=== PATIENT | male | born 1985 | race Caucasian/White ===

== ENCOUNTER 2022-04-07 19:52 | Observation (INO) | payer MEDICAID, SELFPAY ==
[2022-04-07 19:53] VITALS: BP 117/77; PULSE 67; RESP 16; TEMP 36.3; O2SAT 100; BMI 22.2
[2022-04-07 20:29] LABS: Absolute Lymphocyte Count 3.33 X10^3/uL (0.83-4.51); Absolute Neutrophil Count 2.7 X10^3/uL (2.0-7.7); Basophil# 0.05 X10^3/uL; Basophil% 0.7 % (0-1); Eosinophil# 0.24 X10^3/uL; Eosinophils% 3.5 % (0-5); Hematocrit 38.7 % (40-54); Hemoglobin 12.5 g/dL (13.0-16.5); Lymphocyte # 3.33 X10^3/ul (0.83-4.51); Lymphocyte % 48.4 % (19-41); Mean Corp Hgb Conc 32.3 g/dL (32-36); Mean Corpuscular Hgb 28.2 pg (27.0-32.0); Mean Corpuscular Volume 87.2 fL (80-94); Mean Platelet Vol. 11.4 fl (6.2-12.0); Monocyte# 0.58 X10^3/uL; Monocyte% 8.4 % (0-10); NRBC Flagged by Analyzer 0 % (0-5); Neutrophil # 2.66 X10^3/uL (2.7-7.7); Neutrophil % 38.7 % (47-70); Platelet Count 262 K/mm3 (150-450); RBC Distribution Width CV 13.2 % (11.6-14.6); RBC Distribution Width SD 41.8 fl (35.1-43.9); Red Blood Count 4.44 M/mm3 (4.6-6.2); White Blood Count 6.9 K/mm3 (4.4-11.0)
--- NOTE | 2022-04-07 20:40 | CM.ED ---
Addendum entered by Toya Michael 04/07/22 20:45: LIYAH reviewed chart and noted that patient has no PCP. SW provided patient with list of [facility] and [facility] Physician List for reference. Original Note: LIYAH Note Referral Reason: RAMP Referral Source: Case Find SW met with patient to discuss the RAMP program.Patient gave consent to speak to him in front of his mother, who was also in the room. Patient reports they are detoxing from fentanyl. Last use was 1 hour ago. He last used 2/10th but generally uses 1 gram a day. Patient is not linked with outpatient AOD provider. Patient was advised that the RAMP program includes no outside food or visitors, no phone access and all personal items are secured. Patient reports he is homeless. SW called Treatment Navigator and updated her regarding patient?s admission to RAMP. Plan: RAMP Toya PATEL
[2022-04-07 20:47] LABS: Amphetamine Urine VISTA POSITIVE (<1000 ng/mL); Barbiturate Urine VISTA NEGATIVE (< 200 ng/mL); Benzodiazepine Urine VISTA NEGATIVE (< 200 ng/mL); Cocaine Urine VISTA NEGATIVE (< 300 ng/mL); Ecstacy Urine VISTA POSITIVE (< 500 ng/mL); Methadone Urine VISTA NEGATIVE (< 300 ng/mL); PCP Urine VISTA NEGATIVE (< 25 ng/mL); THC Urine VISTA NEGATIVE (< 50 ng/mL); Vista UDS pH Range 5
[2022-04-07 20:55] LABS: Alcohol, Blood (Medical)-Serum < 3.0 mg/dL
[2022-04-07 21:00] LABS: ALB/GLOB Ratio 0.7 RATIO (0.9-2.4); AST(SGOT) 23 U/L (15-37); Alanine Aminotransfer ALT/SGPT 19 U/L (16-61); Albumin, Serum 3.5 g/dL (3.2-5.0); Alkaline Phosphatase 110 U/L (45-117); Anion Gap 7 (5-15); BUN 16 mg/dL (7-18); BUN/Creat Ratio 15.8 RATIO (10-20); Calcium,Total 9.2 mg/dL (8.5-10.1); Chloride 105 mmol/L (98-107); Creatinine, Serum 1.01 mg/dL (0.70-1.30); EST Glomerular Filtration Rate 89 mL/min (>60); Est Glom Filt Rate - Afr Amer 107 mL/min (>60); Estimated Creatinine Clearance 115.41 ml/min; Globulin 4.7 g/dL (2.2-4.2); Glucose 133 mg/dL (74-106); Potassium 3.6 mmol/L (3.5-5.1); Protein, Total 8.2 g/dL (6.4-8.2); Sodium Level 140 mmol/L (136-145)
--- NOTE | 2022-04-07 21:05 | EX.ED.SAOD ---
HPI History of Present Illness Chief Complaint: Substance Abuse Informant: patient Narrative Narrative: Patient is a 37-year-old male that denies any significant past medical history presenting for fentanyl detox. Patient states he last detoxed about a year ago at another facility. He states he uses IV fentanyl multiple times a day. He uses about a gram a day. He last used at around 730 this evening. He also uses methamphetamines and intermittently uses gabapentin and benzodiazepines. Notes he ran out of benzodiazepines about a week ago. Denies any alcohol use. Does use tobacco. Is unaware of any history of HIV or hepatitis. Has no medical complaints at this time. No other complaints. [facility] Home Medications NK 04/07/22 [History Last Taken Unknown] Allergy/AdvReac Type Severity Reaction Status Date / Time No Known Allergies Allergy Verified 04/07/22 19:56 Family History (Updated 04/07/22 @ 22:[address] Farhad Adams MD) Other Diabetes Social History Smoking Status: Current every day smoker tobacco type: cigarettes ROS ROS ED Constitutional Constitutional ED: Denies chills or fever(s) Eyes Eyes: Denies change in vision Cardiovascular Cardiovascular: Denies chest pain Respiratory/Chest Respiratory/Chest: Denies cough or dyspnea Gastrointestinal Gastrointestinal: Denies nausea or vomiting Musculoskeletal Musculoskeletal: Denies arthralgias or myalgias Neurologic Neurologic: Denies headache(s) Psychiatric Psychiatric: Reports other Details: Polysubstance abuse ; Denies anxiety EXAM Physical Exam Const Vital Signs: 04/07/22 19:53 04/07/22 19:53 Temperature 97.3 F L 97.3 F L Temperature Source Temporal Temporal Pulse Rate 67 67 Respiratory Rate 16 16 Blood Pressure 117/77 117/77 Blood Pressure Mean 90 90 Pulse Ox 100 100 Oxygen Delivery Method Room Air Room Air Positive well developed and cachectic General Appearance ED: well developed, cachectic and NAD Nutritional Appearance: cachectic HEENT Reports moist mucous membranes atraumatic Eyes PERRL and EOMs intact bilaterally Neck supple Chest Wall inspection of chest normal and palpation of chest normal Resp normal respiratory effort and clear to auscultation bilaterally Cardio regular rate, regular rhythm and no murmurs GI soft to palpation, non-tender and non-distended Extremity General Extremety ED: Negative for edema General Extremity: Negative for edema Neuro oriented x3 and no sensory deficits noted Sensorium / Orientation: alert Motor Exam: strength 5/5 throughout; Negative for general weakness Psych mental status grossly normal and thought process normal Skin Skin Narrative: No rash appreciated. Scattered track robert on the upper extremities MDM MDM MDM Narrative Medical decision making narrative: Patient evaluated for detox from fentanyl. Patient appears nontoxic. He clinically does not appear intoxicated. Screening for ramp program performed. Patient will is not actively withdrawing and does not require any symptomatic management at this time. Case will be discussed with the hospitalist, Dr. Aleman for admission. Lab Data Attestation: I reviewed the patient's lab results. Labs: Laboratory Results - last 24 hr 04/07/22 04/07/22 04/07/22 20:22 20:22 20:22 WBC 6.9 RBC 4.44 L Hgb 12.5 L Hct 38.7 L MCV 87.2 MCH 28.2 MCHC 32.3 RDW Std Deviation 41.8 RDW Coeff of Cole 13.2 Plt Count 262 MPV 11.4 Immature Gran % (Auto) 0.300 Neut % (Auto) 38.7 L Lymph % (Auto) 48.4 H [place] % (Auto) 8.4 Eos % (Auto) 3.5 Baso % (Auto) 0.7 Absolute Neuts (auto) 2.7 Absolute Lymphs (auto) 3.33 Nucleated RBC % 0 Sodium 140 Potassium 3.6 Chloride 105 Carbon Dioxide 28.0 Anion Gap 7 BUN 16 Creatinine 1.01 Estim Creat Clear Calc 115.41 Est GFR (MDRD) Af Amer 107 Est GFR (MDRD) Non-Af 89 BUN/Creatinine Ratio 15.8 Glucose 133 H Calcium 9.2 Total Bilirubin 0.20 AST 23 ALT 19 Alkaline Phosphatase 110 Total Protein 8.2 Albumin 3.5 Globulin 4.7 H Albumin/Globulin Ratio 0.7 L Urine Opiates Screen Urine Methadone Screen Ur Barbiturates Screen Ur Phencyclidine Scrn Ur Amphetamines Screen MDMA (Ecstasy) Screen U Benzodiazepines Scrn Urine Cocaine Screen U Cannabinoids Screen Ur Drug Screen Comment Ethyl Alcohol < 3.0 04/07/22 20:22 WBC RBC Hgb Hct MCV MCH MCHC RDW Std Deviation RDW Coeff of Cole Plt Count MPV Immature Gran % (Auto) Neut % (Auto) Lymph % (Auto) [place] % (Auto) Eos % (Auto) Baso % (Auto) Absolute Neuts (auto) Absolute Lymphs (auto) Nucleated RBC % Sodium Potassium Chloride Carbon Dioxide Anion Gap BUN Creatinine Estim Creat Clear Calc Est GFR (MDRD) Af Amer Est GFR (MDRD) Non-Af BUN/Creatinine Ratio Glucose Calcium Total Bilirubin AST ALT Alkaline Phosphatase Total Protein Albumin Globulin Albumin/Globulin Ratio Urine Opiates Screen NEGATIVE Urine Methadone Screen NEGATIVE Ur Barbiturates Screen NEGATIVE Ur Phencyclidine Scrn NEGATIVE Ur Amphetamines Screen POSITIVE H MDMA (Ecstasy) Screen POSITIVE H U Benzodiazepines Scrn NEGATIVE Urine Cocaine Screen NEGATIVE U Cannabinoids Screen NEGATIVE Ur Drug Screen Comment Ethyl Alcohol Discharge Plan Dx/Rx/DC Orders Clinical Impression: Polysubstance abuse, Active intravenous drug use Disposition Disposition: Acute Care Hospital [facility]
--- NOTE | 2022-04-07 22:02 | HP.PCM.HOS_ITS ---
HPI - General General Date of Admission: 04/07/22 Date of Service: 04/07/22 Chief Complaint: Desire for detoxification HPI Narrative JORDAN MORALEZ, is a 37 M with a significant history of polysubstance abuse who presents emergency department with help with detoxification. Patient uses fentanyl, methamphetamine, gabapentin, benzodiazepines and marijuana. Patient's aunt who was with patient at bedside and patient has been noticing some twitching that started on the same day of presentation. Patient admitted that he has cut down the use of his fentanyl. Also last time that he used benzodiazepine (clonidine) is about a week ago. Fentanyl use: Patient has been using IV fentanyl for about 10 years. Typically he uses about 1 g/day. Last time he used was about 2 hours before presentation. He reports going through multiple detoxs in the past. Methamphetamine use: He has been using methamphetamine for about 8 years. He uses about a gram a day. Last time he used was about 8 to 10 hours before presentation. He snorts or shoots. Gabapentin: Reports using about 4 of 100 mg pills per day. Last time he used was a day before presentation. Benzodiazepine: He reports that he uses Klonopin. Last time he used was about a week ago. [facility], [facility] Medical History no medical history no medical history Home Medications NK 04/07/22 [History Last Taken Unknown] Allergy/AdvReac Type Severity Reaction Status Date / Time No Known Allergies Allergy Verified 04/07/22 19:56 Family History (Updated 04/07/22 @ 22:[address] Farhad Adams MD) Other Diabetes Surgical History no surgical history no surgical history Social History Smoking Status: Current every day smoker tobacco type: cigarettes ROS ROS Narrative Pertinent positives and pertinent negatives as noted in HPI. All other systems were reviewed and are negative Vital Signs Vital Signs Vital Signs: 04/07/22 19:53 04/07/22 19:53 Temperature 97.3 F L 97.3 F L Temperature Source Temporal Temporal Pulse Rate 67 67 Respiratory Rate 16 16 Blood Pressure 117/77 117/77 Blood Pressure Mean 90 90 Pulse Ox 100 100 Oxygen Delivery Method Room Air Room Air Weight Weight: 80.7 kg Body Mass Index (BMI) 22.2 Physical Exam Narrative Physical exam: General: Well-nourished, well-developed. Head: Normocephalic, atraumatic, no tenderness Eyes: Vision is grossly intact. EOMI ENT, no trauma, moist mucous membranes, no rhinorrhea Neck: Nontender, No thyromegaly. CVS: Regular rate and rhythm. S1-S2 present. No murmur, gallop or rub. Respiratory : clear to auscultation bilaterally, chest wall nontender, no wheezing Abdomen: Soft, nontender, nondistended, normal bowel sounds, no masses : Deferred Back: Nontender, no CVA tenderness, no midline spinal tenderness, deformities, step-offs Extremities:Needle track robert on right upper extremity. Nontender full range of motion, no trauma Skin: Normal color, no trauma, abrasions Neuro: Alert, oriented, cranial nerves II through XII grossly intact. Psychiatry: Normal mood. Normal affect. Not depressed. Not anxious. Results Lab / Micro Data Result Diagrams: 04/07/22 20:22 04/07/22 20:22 Labs: Laboratory Results - last 24 hr 04/07/22 20:22: WBC 6.9, RBC 4.44 L, Hgb 12.5 L, Hct 38.7 L, MCV 87.2, MCH 28.2, MCHC 32.3, RDW Std Deviation 41.8, RDW Coeff of Cole 13.2, Plt Count 262, MPV 11.4, Immature Gran % (Auto) 0.300, Neut % (Auto) 38.7 L, Lymph % (Auto) 48.4 H, [place] % (Auto) 8.4, Eos % (Auto) 3.5, Baso % (Auto) 0.7, Absolute Neuts (auto) 2.7, Absolute Lymphs (auto) 3.33, Nucleated RBC % 0 04/07/22 20:22: Sodium 140, Potassium 3.6, Chloride 105, Carbon Dioxide 28.0, Anion Gap 7, BUN 16, Creatinine 1.01, Estim Creat Clear Calc 115.41, Est GFR (MDRD) Af Amer 107, Est GFR (MDRD) Non-Af 89, BUN/Creatinine Ratio 15.8, Glucose 133 H, Calcium 9.2, Total Bilirubin 0.20, AST 23, ALT 19, Alkaline Phosphatase 110, Total Protein 8.2, Albumin 3.5, Globulin 4.7 H, Albumin/Globulin Ratio 0.7 L 04/07/22 20:22: Ethyl Alcohol < 3.0 04/07/22 20:22: Urine Opiates Screen NEGATIVE, Urine Methadone Screen NEGATIVE, Ur Barbiturates Screen NEGATIVE, Ur Phencyclidine Scrn NEGATIVE, Ur Amphetamines Screen POSITIVE H, MDMA (Ecstasy) Screen POSITIVE H, U Benzodiazepines Scrn NEGATIVE, Urine Cocaine Screen NEGATIVE, U Cannabinoids Screen NEGATIVE, Ur Drug Screen Comment Assessment & Plan Assessment/Plan (1) Polysubstance abuse: (2) Tobacco abuse: PLAN: Plan Desire for opioid detoxification Patient be started on Subutex and other adjunctive medications: Gabapentin as needed; dicyclomine as needed; Vistaril as needed; methocarbamol as needed; clonidine as needed; Imodium as needed; trazodone as needed and Zofran as needed. Monitor COWS and CINA score Methamphetamine abuse Counseled Gabapentin abuse As needed gabapentin ordered. Tobacco abuse Counseled Nicotine patch prescribed. DVT prophylaxis Low risk Encourage to ambulate Charges/Coding Visit Charges Inpatient E&M: 82149 Init Hosp L2
[2022-04-07 22:26] VITALS: BP 108/77; PULSE 77; RESP 17; TEMP 37.1; O2SAT 99
--- NOTE | 2022-04-07 22:29 | ED.RN ---
This RN saw this pt walking out of room completely dressed. Pt told this RN that he did not want to stay and would try again another time. Pt was instructed that he would have to start the process over. Pt still wanted to leave. Pt left with aunt who was in room entire stay in this ER.
--- NOTE | 2022-04-08 06:56 | PCM.PN.BLA ---
Progress Note Notified by nursing team that patient left AGAINST MEDICAL ADVICE without actually going to the floor.
== END 2022-04-07 22:00 | disposition left against medical advice (07) ==
LOC: ED 21:09 → MS3 22:53
PROVIDERS: Admitting Provider Hospitalist; Emergency Provider Emergency Medicine; Visit Provider Hospitalist
DX: F11.10 Opioid abuse, uncomplicated (principal); F15.10 Other stimulant abuse, uncomplicated; F19.19 Other psychoactive substance abuse with unspecified psychoactive substance-induced disorder; F17.210 Nicotine dependence, cigarettes, uncomplicated
CPT/HCPCS: 80053; 80307; 82077; 85025; 99221; 99283; G0378